=== PATIENT | female | born 1930 | race Caucasian/White ===

== ENCOUNTER 2018-12-19 08:30 | Inpatient (IN) ==
[2018-12-19] MEDS ORDERED: SODIUM CHLORIDE 0.9% 500 ML IV SCH (09:00)
[2018-12-19 09:20] LABS: Basophils # (auto) 0.03 K/uL (0-0.2); Basophils % (auto) 0.4 %; Eosinophils # (auto) 0.17 K/uL (0-0.5); Hematocrit (blood only) 37.9 % (37-47); Hemoglobin 12.9 g/dL (12.0-16.0); Immature Granulocytes # (auto) 0.02 K/uL (0.00-0.02); Immature Granulocytes % (auto) 0.2 %; Lymphocytes # (auto) 0.75 K/uL (1.2-3.4); Lymphocytes % (auto) 8.8 %; Mean Corpuscular Volume 91.8 fL (80-100); Mean Platelet Volume 9.9 fL (7.4-10.4); Monocytes # (auto) 0.61 K/uL (0.11-0.59); Monocytes % (auto) 7.2 %; Neutrophils # (auto) 6.93 K/uL (1.4-6.5); Neutrophils % (auto) 81.4 %; Platelet Count 246 K/uL (130-400); RDW Coefficient of Variation 14.6 % (11.5-14.5); RDW Standard Deviation 49.4 fL (36.4-46.3); Red Blood Count 4.13 M/uL (4.2-5.4); White Blood Count 8.51 K/uL (4.8-10.8)
[2018-12-19 09:25] LABS: Appearance Urine Clear (Clear); Bilirubin Urine Negative (Negative); Blood Urine Negative (Negative); Color Urine Yellow; Glucose Urine UA Negative (Negative); Ketones Urine Negative (Negative); Leukocyte Esterase Urine Negative (Negative); Nitrite Urine Negative (Negative); Protein Urine Negative (Negative); Specific Gravity Urine 1.012 (1.000-1.030); Urobilinogen Urine Negative (Negative); pH Urine 8.5 (4.5-7.5)
[2018-12-19 09:29] LABS: Prothrombin Time 10.4 Seconds (9.0-12.0)
--- NOTE | 2018-12-19 09:34 | XRay Report ---
XR chest 1V portable CLINICAL HISTORY: Atypical chest pain COMPARISON STUDY: No previous studies for comparison. FINDINGS: The heart is enlarged. There are postsurgical changes of a midline sternotomy. There is a l eft subclavian dual-chamber central venous pacemaker. There is slight elevation of interstitium sugge sting mild pulmonary vascular congestion. Increasing marking at the left lung base are likely atelect atic although an infectious/inflammatory processes could appear similar[ IMPRESSION: 1. Cardiomegaly and mild pulmonary vascular congestion 2. Increased left basilar markings statistically atelectatic Electronically signed by: Celestine Cohen M.D. 12/19/2018 9:32 AM
[2018-12-19 09:37] LABS: Alanine Aminotransferase 24 U/L (12-78); Albumin Level 3.5 gm/dl (3.4-5.0); Aspartate Aminotransferase 16 U/L (15-37); BUN Creatinine Ratio 17.4 (10-20); Blood Urea Nitrogen 20 mg/dl (7-18); Calcium 8.7 mg/dl (8.5-10.1); Carbon Dioxide 30 mmol/L (21-32); Chloride 106 mmol/L (98-107); Creatinine Clr Calc Pharmacy 32.9 ml/min; Est GFR (African American) 48.2; Est GFR (Non-African American) 41.6; Glucose 109 mg/dl (70-99); Magnesium 2.2 mg/dl (1.8-2.4); Potassium 3.9 mmol/L (3.5-5.1); Sodium 140 mmol/L (136-145)
[2018-12-19] MEDS ORDERED: DiphenhydrAMINE HCL 50 MG/ML VIAL IV STA (09:38)
[2018-12-19 09:47] LABS: Albumin Globulin Ratio 1.1 (0.9-2); Alkaline Phosphatase 90 U/L (45-117); Bilirubin,Total 0.7 mg/dl (0.2-1); Globulin 3.2 gm/dl (2.5-4.0); Phosphorus 3.1 mg/dl (2.5-4.9); Total Protein 6.7 gm/dl (6.4-8.2); Troponin I < 0.015 ng/ml (0-0.045)
[2018-12-19 09:59] LABS: T4 Free Thyroxine 2.46 ng/dl (0.8-1.6)
[2018-12-19] MEDS ORDERED: OPTIRAY 320 125ml IV PRN (10:07)
--- NOTE | 2018-12-19 10:33 | CT Scan Report ---
CT angio head w con CLINICAL HISTORY: vertigo POSSIBLE STROKE TECHNIQUE: CT angiography of the head was performed in a dynamic helical fashion during intravenous a dministration of 119 cc of Optiray 320. MIP imaging was performed. A dose lowering technique was util ized adhering to the principles of ALARA. CT DOSE: 1024.99 mGy.cm COMPARISON STUDY: No previous studies for comparison. FINDINGS: There are no lesion suspicious for aneurysm. There are no major intracranial branch occlusi ons. The dural venous sinuses appear patent. There is a 1 cm hyperdense right anterior dural based lesion at the level of the foramen magnum with minor mass effect on the craniocervical junction. This is nonspecific but could represent a meningiom a. An MRI would be considered the test of choice in follow-up. IMPRESSION: 1. No evidence of aneurysm. No evidence of major intracranial branch occlusion 2. 1 cm hyperdense right anterior dural based lesion at the level of the foramen magnum with minor ma ss effect on the cervical cranial junction. Although nonspecific this could represent a meningioma. A n MRI would be considered the test of choice in follow-up Electronically signed by: Celestine Cohen M.D. 12/19/2018 10:32 AM
--- NOTE | 2018-12-19 10:33 | CT Scan Report ---
CT head/brain wo con CLINICAL HISTORY: vertigo POSSIBLE STROKE COMPARISON STUDY: No previous studies for comparison. TECHNIQUE: Axial CT of the brain is performed from the vertex to the skull base. IV contrast was not administered for this examination. A dose lowering technique was utilized adhering to the principles of ALARA. CT DOSE: FINDINGS: No intra or extra-axial mass lesions are visualized. There is no CT evidence of acute cortical infarc tion. There is no evidence of midline shift. There is no acute hemorrhage. No calvarial fractures ar e visualized. There are patchy white matter hypodensities likely on a small vessel basis. There is no evidence of pathologic ventricular dilatation. There is a left cerebellar calcification. There is a suspected dural based lesion involving the right anterior aspect at the level of the foramen magnum. An MRI would be considered the test of choice in follow-up There is no evidence of acute sinusitis. IMPRESSION: 1. No acute intracranial findings 2. 1 cm hyperdense dural based lesion within the right anterior aspect of the foramen magnum. This co uld represent a meningioma. An MRI would be considered the test of choice in follow-up Electronically signed by: Celestine Cohen M.D. 12/19/2018 10:32 AM
--- NOTE | 2018-12-19 10:38 | CT Scan Report ---
CT angio neck with con CLINICAL HISTORY: vertigo POSSIBLE STROKE COMPARISON STUDY: No previous studies for comparison. TECHNIQUE: CT angiography was performed from the aortic arch to the skull base. MIP imaging was perfo rmed. The patient was scanned in a dynamic helical fashion during intravenous administration of 119 c c of Optiray 320. A dose lowering technique was utilized adhering to the principles of ALARA. CT DOSE: Technique: CT angiogram of the carotid and vertebral arteries was obtained using intravenous contrast and 3-D reconstruction. NASCET criteria was utilized. Findings: The right carotid revealed no evidence of aneurysm and no evidence of dissection. There is no evidenc e of hemodynamic significant stenosis. The left carotid revealed no evidence of hemodynamic significant stenosis. There is no evidence of an eurysm. There is no evidence of dissection. Atheromatous calcifications are present at the level of both carotid bulbs right greater than left. There is no evidence of hemodynamically significant vertebral stenosis. There is no evidence of verte bral dissection. At the level of the foramen magnum and there is a 1 cm right anterior dural based lesion demonstratin g minimal mass effect on the craniocervical junction. IMPRESSION: 1. No evidence of hemodynamically significant carotid or vertebral artery stenosis. No evidence of di ssection. 2. 1 cm right anterior dural based lesion at the level of the foramen magnum demonstrating minimal ma ss effect on the craniocervical junction. Electronically signed by: Celestine Cohen M.D. 12/19/2018 10:36 AM
--- NOTE | 2018-12-19 13:17 | History & Physical Report ---
Date of Service December 19, 2018 Assessment & Plan (1) Vertigo: Likely related to meningioma noted on CT CBC, PRP, TSH, trop WNL UA and CXR neg for infection CTA neg for acute [facility] neurosurgery contacted by ED and pt not felt a candidate for OR, planning for sx management and outpt f/u Improved s/p IVF and benadryl Somewhat concerned about frequent, mcc use of benadryl in this pt Meclizine PRN Holding on further IVF given toresmide use (2) Fall: Related to above PT/OT pending (3) Anxiety: continue home meds (4) Hyperlipidemia: continue home meds (5) HTN (hypertension): continue home meds (6) GERD (gastroesophageal reflux disease): continue home meds (7) Heart disease: s/p CABG, pacer, stents continue home meds (8) Hypokalemia: continue home meds, 3.9 on admission (9) Living in assisted living: Uncertain if this will continue to be appropriate for pt PT/OT pending CM alert (10) DVT prophylaxis: SCDs to avoid GIB in a pt on aspirin 81mg and plavix History of Present Illness Primary Care Provider: Victor M Hall MD 88 y/o F s/p fall. Pt's family has left the ED and pt is not able to tell me if this happened last night or this morning, but she states that she was camping in a camper at the [facility] with her daughter and other family. She states she got up to use the bathroom inside the camper and had difficulty opening the door because her vision was not as it usually is. Pt's baseline vision is using glasses to read, but does not wear them other times. She states she felt her head was "droggy" which she is having difficulty further quantifying. She states she could not keep her balance in the bathroom and fell against the wall onto her elbow. She was able to lower herself to the toilet to urinate, but due to the feeling in her head, she called out for help and was brought to the ED. Her vision was not blurry or double or absent, but more "dark". Pt states that she has had no similar episodes prior and no other recent falls. Pt has an apartment in [place] in [place]. Someone helps her with her medications there and she is uncertain what she takes. She does not remember if she took her medications or ate this AM. Pt was given IVF and benadryl in the ED. She still has the same sx, but they are less. CT head revealed a 1cm meningioma with very slight mass effect. ED physician spoke with neurosurgery at [facility] who stated that given pt's age and medical c omorbidities that he would not recommend surgical intervention or transfer at this time. Goal is for sx control and outpt f/u. ED physician states he discussed this with family and they would like her to stay at [facility] for observation. Pt does not remember conversation regarding meningioma between ED physician and family Allergies Allergy/AdvReac Type Severity Reaction Status Date / Time No Known Allergies Allergy Unverified 12/19/18 09:05 Home Medications Home Medications Medication Instructions Recorded Confirmed Type acetaminophen [Tylenol] 650 mg PO HS 12/19/18 12/19/18 History alprazolam 0.5 mg PO BID 12/19/18 12/19/18 History amiodarone 200 mg PO QAM 12/19/18 12/19/18 History amlodipine 10 mg PO QAM 12/19/18 12/19/18 History aspirin 81 mg PO BID 12/19/18 12/19/18 History calcium carbonate-vitamin D3 1 tab PO QAM 12/19/18 12/19/18 History [Calcium 600 + D(3)] cholecalciferol (vitamin D3) 1,000 unit PO QAM 12/19/18 12/19/18 History [Vitamin D3] clopidogrel 75 mg PO QAM 12/19/18 12/19/18 History cyanocobalamin (vitamin B-12) 1,000 mcg PO QAM 12/19/18 12/19/18 History [Vitamin B-12] donepezil 5 mg PO HS 12/19/18 12/19/18 History levothyroxine [Synthroid] 125 mcg PO 5XWK 12/19/18 12/19/18 History levothyroxine [Synthroid] 250 mcg PO 2XWK 12/19/18 12/19/18 History metoprolol succinate 25 mg PO QAM 12/19/18 12/19/18 History nitroglycerin 0.4 mg TRANSDERMAL QAM 12/19/18 12/19/18 History omeprazole 20 mg PO QAM 12/19/18 12/19/18 History potassium chloride 20 meq PO BID 12/19/18 12/19/18 History ranolazine [Ranexa] 500 mg PO Q12 12/19/18 12/19/18 History simvastatin 40 mg PO HS 12/19/18 12/19/18 History spironolactone [Aldactone] 12.5 mg PO BID 12/19/18 12/19/18 History torsemide 40 mg PO BID 12/19/18 12/19/18 History vitamin E 400 unit PO QAM 12/19/18 12/19/18 History Past Med/Surg History Medical History Heart disease (Chronic) Anxiety (Chronic) Surgical History History of open heart surgery S/P coronary artery stent placement Family History Other Family history non-contributory Social History marital status: / Current Living Situation: Alone current occupational status: retired Feels Safe at Home: Yes Smoking Status: Former smoker Cigarettes Per Day: 3-4 puffs on a cigarette here and there when younger, none for decades ; Hx Alcohol Use: No Hx Substance Use: No Review of Systems Review of Systems: Pertinent positives and negatives reviewed in HPI--all others negative Physical Exam Constitutional: WD/WN, vitals as above Eyes: normal visual jim by confrontation and + anicteric sclerae Neck: normal visual inspection and trachea midline Respiratory: normal respiratory effort, lungs clear to auscultation Cardiovascular: Rate/Rhythm: regular rate and regular rhythm Gastrointestinal (Abdomen): Inspection/Auscultation: abdomen not distended Percussion/Palpation: abdomen soft; abdomen nontender Musculoskeletal: Head/Neck/Chest: normocephalic and head atraumatic negative for edema, peripheral pulses intact Skin: no rashes, warm and dry Neurologic: CN's II-XI intact bilaterally and awake; not confused Speech / Cognition: normal speech Answers most questions appropriately, but does repeat information such as the fall this morning and her current living situation without repeated questioning. Psychiatric: A+Ox3, euthymic affect Results & Data Vital Signs (Past 12 Hours) Vital Signs Temp Pulse Pulse Resp BP BP Pulse Ox 12/19/18 12:14 63 16 146/75 H 93 12/19/18 11:17 65 20 113/51 L 97 12/19/18 10:02 60 18 136/65 95 12/19/18 08:53 97 12/19/18 08:50 36.5 C 60 20 128/73 97 Diagnostic Findings CXR: neg for acute CT head: 1 cm meningioma with slight mass effect CTA: neg for acute Code Status & VTE Plan Code Status Full code, although pt states she is not sure "You will have to talk with my kids. They know all of this." VTE Prophylaxis Plan VTE Prophylaxis will be ordered: Yes PG Care Time/CCT Total # of Minutes Spent Total Time Spent with Patient: Total time spent is greater than 50% in coordination of care (as documented) at patient's floor/unit and/or counseling patient:
[2018-12-19] MEDS ORDERED: ONDANSETRON INJ 2 MG/ML 2 ML VIAL IV PRN (14:03)
[2018-12-19] MEDS ORDERED: MECLIZINE 12.5 MG TAB PO PRN (14:03)
[2018-12-19] MEDS ORDERED: MAGNESIUM HYDROXIDE SUSP 30 ML UDC PO PRN (14:03)
[2018-12-19] MEDS ORDERED: ACETAMINOPHEN 325 MG TAB PO PRN (14:03)
--- NOTE | 2018-12-19 15:22 | Emergency Department Note ---
Entered by Nallely White acting as a scribe for History of Present Illness General Chief complaint: Vertigo Stated complaint: dizzy/shakes Time Seen by Provider: 12/19/18 08:54 Source: patient and family (daughter) History of Present Illness Onset (ago): hour(s) (this morning) Location: head Pain Consistency: + other (episode) Quality: + other (vertigo) Exacerbated By: + movement (standing up) Associated symptoms: + other (inability to walk, blurry vision, "fogginess", confusion) The patient is a 88 year old female with a history of CAD and anxiety that is presenting to the Emergency Room with complaints of an episode of vertigo that started this morning when the patient woke up. The patient is from the [facility] and reports that she was camping at the [facility] and felt foggy and light-headed upon sitting up. She states that she had difficulty seeing farther than a few feet in front of her, which is different than baseline. The patients daughter reports that the patient seemed confused and different than usual. The patient states that she was unable to walk and notes that her feet gave out from underneath her. Her daughter states that the patient has a history of anxiety and notes that the patient had not yet taken her Xanax when her symptoms began. Her daughter notes that the patient was given Ativan on the way to the ED by EMS. Her daughter states that the patients anxiety worsens with similar episodes in the past. Her daughter reports that the patient has a history of CAD and has had 2 open heart surgeries in the past that first presented with similar symptoms. Her daughter states that she has a history of coronary stents and a pacemaker. Her daughter notes that the patients left leg is swollen at baseline secondary to her past cardiac surgery. Her daughter denies any known history of a heart attack. The patient notes that she was well prior to todays episode. She states that she takes Plavix and Torsemide regularly. Home Medications Home Medications Medication Instructions Recorded Confirmed Type acetaminophen [Tylenol] 650 mg PO HS 12/19/18 12/19/18 History alprazolam 0.5 mg PO BID 12/19/18 12/19/18 History amiodarone 200 mg PO QAM 12/19/18 12/19/18 History amlodipine 10 mg PO QAM 12/19/18 12/19/18 History aspirin 81 mg PO BID 12/19/18 12/19/18 History calcium carbonate-vitamin D3 1 tab PO QAM 12/19/18 12/19/18 History [Calcium 600 + D(3)] cholecalciferol (vitamin D3) 1,000 unit PO QAM 12/19/18 12/19/18 History [Vitamin D3] clopidogrel 75 mg PO QAM 12/19/18 12/19/18 History cyanocobalamin (vitamin B-12) 1,000 mcg PO QAM 12/19/18 12/19/18 History [Vitamin B-12] donepezil 5 mg PO HS 12/19/18 12/19/18 History levothyroxine [Synthroid] 125 mcg PO 5XWK 12/19/18 12/19/18 History levothyroxine [Synthroid] 250 mcg PO 2XWK 12/19/18 12/19/18 History metoprolol succinate 25 mg PO QAM 12/19/18 12/19/18 History nitroglycerin 0.4 mg TRANSDERMAL QAM 12/19/18 12/19/18 History omeprazole 20 mg PO QAM 12/19/18 12/19/18 History potassium chloride 20 meq PO BID 12/19/18 12/19/18 History ranolazine [Ranexa] 500 mg PO Q12 12/19/18 12/19/18 History simvastatin 40 mg PO HS 12/19/18 12/19/18 History spironolactone [Aldactone] 12.5 mg PO BID 12/19/18 12/19/18 History torsemide 40 mg PO BID 12/19/18 12/19/18 History vitamin E 400 unit PO QAM 12/19/18 12/19/18 History Allergies Allergy/AdvReac Type Severity Reaction Status Date / Time No Known Allergies Allergy Unverified 12/19/18 09:05 Past Med/Surg History Medical History Heart disease (Chronic) Anxiety (Chronic) Surgical History History of open heart surgery S/P coronary artery stent placement Family History Other Family history non-contributory Social History Preferred Language: Irish Communication Ability: Effective Build Master Required: No Beliefs That Will Affect Care: None marital status: / Current Living Situation: Other Current Living Situation Comment: Assisted Living Facility current occupational status: retired Feels Safe at Home: Yes Smoking Status: Former smoker Tobacco Type: cigarettes ; Cigarettes Per Day: 3- 4 puffs on a cigarette here and there when younger, none for decades ; Second Hand Exposure: No ; Hx Alcohol Use: No Hx Substance Use: No Review of Systems See HPI for pertinent positives & negatives. and A total of 10 systems reviewed and were otherwise negative Physical Exam Vital Signs Vital Signs - 24 hr 12/19/18 08:50 12/19/18 08:53 12/19/18 08:58 Temperature 36.5 C Temperature Source Oral Sepsis Recent Fever Within 48 Hours No Sepsis New/Unexplained Change in Mental Status No Sepsis Action Taken by Nursing No Action Required Pulse Rate - Lying 60 Pulse Rate - Sitting 65 Pulse Rate - Standing 68 Pulse Rate 60 Pulse Rate [Left Finger] Respiratory Rate 20 Blood Pressure - Lying 127/61 Blood Pressure - Sitting 138/65 Blood Pressure- Standing 108/58 L Blood Pressure 128/73 Blood Pressure [Left Arm] Blood Pressure Mean 91 Blood Pressure Mean [Left Arm] Pulse Oximetry 97 97 Oxygen Delivery Method Room Air Room Air 12/19/18 10:02 12/19/18 11:17 12/19/18 12:14 Temperature Temperature Source Sepsis Recent Fever Within 48 Hours Sepsis New/Unexplained Change in Mental Status Sepsis Action Taken by Nursing Pulse Rate - Lying Pulse Rate - Sitting Pulse Rate - Standing Pulse Rate Pulse Rate [Left Finger] 60 65 63 Respiratory Rate 18 20 16 Blood Pressure - Lying Blood Pressure - Sitting Blood Pressure- Standing Blood Pressure Blood Pressure [Left Arm] 136/65 113/51 L 146/75 H Blood Pressure Mean Blood Pressure Mean [Left Arm] 88 71 98 Pulse Oximetry 95 97 93 Oxygen Delivery Method Room Air Room Air Room Air GENERAL: Awake, alert, fatigued-appearing, in no distress HENT: Normocephalic, atraumatic. Oropharynx with dry mucous membranes and otherw ise unremarkable. EYES: Normal conjunctiva. Sclera non-icteric. EOMI. No nystamgus. PEARRL. NECK: Supple. No nuchal rigidity. FROM. No JVD. RESPIRATORY: clear to auscultation bilaterally. CARDIAC: Regular rate, normal rhythm. 3/6 systolic murmur. Extremities warm and well perfused. Pulses equal. ABDOMEN: Soft, non-distended. No tenderness to palpation. No rebound or guarding. No masses. RECTAL: Deferred. MUSCULOSKELETAL: Chest examination reveals no tenderness. The back is symmetrical on inspection without obvious abnormality. There is no CVA tenderness to palpation. No joint edema. LOWER EXTREMITIES: Calves are equal size bilaterally and non-tender. No edema. No discoloration. NEURO: Normal sensorium. No sensory or motor deficits noted. Slight bilateral upper extremity intention tremor. Intact finger to nose. 5/5 strength and SILT x 4 extremities. SKIN: No rash or jaundice noted. Course 0931:The patient was evaluated in room B12B. A complete history and physical examination was performed. 1110: I updated the patient on her current lab and imaging results. The patient and her family would prefer not to be transferred to another facility if possi ble, but they stated that they would prefer [facility] in [place] if necessary. 1140: I discussed the patient's case with Dr. West, Neurosurgery, who stated that the patient's symptoms could be caused by the mass seen on her CT. However, given the patient's age and comorbidities, the patient is too high risk for surgical intervention. Dr. West recommended focusing on optimizing the patient's symptoms at this time and states that the patient could follow up with [facility] neurosurgery clinic for further management of her symptoms. He noted that if the patient is not accepted for evaluation at [facility] then the patient should be transferred to the [facility] Hospitalist service. 1147: I discussed the patient's case with Dr. Feng, [facility], who will evaluate the patient for further management and care. 1156: Upon reevaluation, the patient is resting comfortably. I discussed labo ratory and radiographic results with the patient. She verbalized agreement of the treatment plan. The patient will be evaluated for further management and care. Consultations Consultation #1: I discussed the patient's case with Dr. West, [facility] Neurosurgery, who stated that the patient's symptoms could be cause by the mass seen on her CT. However, given the patient's age and comorbidities, the patient is too high risk for surgical intervention. Dr. West recommended focusing on optimizing the patient's symptoms at this time and states that the patient could follow up with [facility] neurosurgery clinic for further management of her symptoms. He noted that if the patient is not accepted for evaluation at [facility] then the patient should be transferred to the [facility] Hospitalist service. Time: 11:40 Consultation #2: I discussed the patient's case with Dr. Feng [facility], who will evaluate the patient for further management and care. Time: 11:47 Administered Medications Ioversol (Optiray 320 125ml) 119 ml IV ONCE PRN PRN Reason: Interaction Checking Stop: 12/23/18 10:06 Last Admin: 12/19/18 10:07 Dose: 119 ml Documented by: [id number] Discontinued Medications Diphenhydramine HCl (Benadryl) 12.5 mg IV NOW STA Stop: 12/19/18 09:39 Last Admin: 12/19/18 09:57 Dose: 12.5 mg Documented by: [id number] Sodium Chloride (Nss) 500 mls @ 999 mls/hr IV .Q31M GUERO Stop: 12/19/18 09:30 Last Infusion: 12/19/18 09:57 Dose: 0 mls/hr Documented by: [id number] Admin: 12/19/18 09:00 Dose: 999 mls/hr Documented by: [id number] Medical Decision Making Differential Diagnosis Differential diagnosis: Etiologies such as vasovagal event, infection, hypoglycemia, electrolyte abnormalities, cardiac sources, intracerebral event, toxicologic, neurologic, as well as others were entertained. Medical Records Attestation: I reviewed the patient's medical records. Home Medications Current Medication List: was personally reviewed by me Laboratory Data Attestation: I reviewed the patient's lab results. Result diagrams: 12/19/18 09:07 12/19/18 09:07 Lab Results 12/19/18 12/19/18 12/19/18 Range/Units 09:07 09:07 09:07 WBC 8.51 (4.8-10.8) K/uL RBC 4.13 L (4.2-5.4) M/uL Hgb 12.9 (12.0-16.0) g/dL Hct 37.9 (37-47) % MCV 91.8 (80-100) fL MCH 31.2 (25-34) pg MCHC 34.0 (32-36) g/dL RDW Std Deviation 49.4 H (36.4-46.3) fL RDW Coeff of Judson 14.6 H (11.5-14.5) % Plt Count 246 (130-400) K/uL MPV 9.9 (7.4-10.4) fL Immature Gran % (Auto) 0.2 % Neut % (Auto) 81.4 % Lymph % (Auto) 8.8 % [place] % (Auto) 7.2 % Eos % (Auto) 2.0 % Baso % (Auto) 0.4 % Immature Gran # (Auto) 0.02 (0.00-0.02) K/uL Neut # (Auto) 6.93 H (1.4-6.5) K/uL Lymph # (Auto) 0.75 L (1.2-3.4) K/uL [place] # (Auto) 0.61 H (0.11-0.59) K/uL Eos # (Auto) 0.17 (0-0.5) K/uL Baso # (Auto) 0.03 (0-0.2) K/uL PT 10.4 (9.0-12.0) Seconds INR 1.0 (0.9-1.1) Sodium 140 (136-145) mmol/L Potassium 3.9 (3.5-5.1) mmol/L Chloride 106 (98-107) mmol/L Carbon Dioxide 30 (21-32) mmol/L Anion Gap 4.0 (3-11) BUN 20 H (7-18) mg/dl Creatinine 1.17 (0.6-1.2) mg/dl Est Cr Clr Drug Dosing 32.9 ml/min Est GFR ( Amer) 48.2 Est GFR (Non-Af Amer) 41.6 BUN/Creatinine Ratio 17.4 (10-20) Glucose 109 H (70-99) mg/dl Calcium 8.7 (8.5-10.1) mg/dl Phosphorus 3.1 (2.5-4.9) mg/dl Magnesium 2.2 (1.8-2.4) mg/dl Total Bilirubin 0.7 (0.2-1) mg/dl AST 16 (15-37) U/L ALT 24 (12-78) U/L Alkaline Phosphatase 90 (45-117) U/L Troponin I < 0.015 (0-0.045) ng/ml Total Protein 6.7 (6.4-8.2) gm/dl Albumin 3.5 (3.4-5.0) gm/dl Globulin 3.2 (2.5-4.0) gm/dl Albumin/Globulin Ratio 1.1 (0.9-2) Lipase 70 L (73-393) U/L TSH 0.022 L (0.300-4.500) uIu/ml Free T4 2.46 H (0.8-1.6) ng/dl Urine Color Urine Appearance (Clear) Urine pH (4.5-7.5) Ur Specific [place] (1.000-1.030) Urine Protein (Negative) Urine Glucose (UA) (Negative) Urine Ketones (Negative) Urine Blood (Negative) Urine Nitrite (Negative) Urine Bilirubin (Negative) Urine Urobilinogen (Negative) Ur Leukocyte Esterase (Negative) 12/19/18 Range/Units 09:08 WBC (4.8-10.8) K/uL RBC (4.2-5.4) M/uL Hgb (12.0-16.0) g/dL Hct (37-47) % MCV (80-100) fL MCH (25-34) pg MCHC (32-36) g/dL RDW Std Deviation (36.4-46.3) fL RDW Coeff of Judson (11.5-14.5) % Plt Count (130-400) K/uL MPV (7.4-10.4) fL Immature Gran % (Auto) % Neut % (Auto) % Lymph % (Auto) % [place] % (Auto) % Eos % (Auto) % Baso % (Auto) % Immature Gran # (Auto) (0.00-0.02) K/uL Neut # (Auto) (1.4-6.5) K/uL Lymph # (Auto) (1.2-3.4) K/uL [place] # (Auto) (0.11-0.59) K/uL Eos # (Auto) (0-0.5) K/uL Baso # (Auto) (0-0.2) K/uL PT (9.0-12.0) Seconds INR (0.9-1.1) Sodium (136-145) mmol/L Potassium (3.5-5.1) mmol/L Chloride (98-107) mmol/L Carbon Dioxide (21-32) mmol/L Anion Gap (3-11) BUN (7-18) mg/dl Creatinine (0.6-1.2) mg/dl Est Cr Clr Drug Dosing ml/min Est GFR ( Amer) Est GFR (Non-Af Amer) BUN/Creatinine Ratio (10-20) Glucose (70-99) mg/dl Calcium (8.5-10.1) mg/dl Phosphorus (2.5-4.9) mg/dl Magnesium (1.8-2.4) mg/dl Total Bilirubin (0.2-1) mg/dl AST (15-37) U/L ALT (12-78) U/L Alkaline Phosphatase (45-117) U/L Troponin I (0-0.045) ng/ml Total Protein (6.4-8.2) gm/dl Albumin (3.4-5.0) gm/dl Globulin (2.5-4.0) gm/dl Albumin/Globulin Ratio (0.9-2) Lipase (73-393) U/L TSH (0.300-4.500) uIu/ml Free T4 (0.8-1.6) ng/dl Urine Color Yellow Urine Appearance Clear (Clear) Urine pH 8.5 H (4.5-7.5) Ur Specific [place] 1.012 (1.000-1.030) Urine Protein Negative (Negative) Urine Glucose (UA) Negative (Negative) Urine Ketones Negative (Negative) Urine Blood Negative (Negative) Urine Nitrite Negative (Negative) Urine Bilirubin Negative (Negative) Urine Urobilinogen Negative (Negative) Ur Leukocyte Esterase Negative (Negative) Imaging Data Radiologist's Impression: Radiology results as stated below per my review and the radiologist's interpretation: XR chest 1V portable CLINICAL HISTORY: Atypical chest pain COMPARISON STUDY: No previous studies for comparison. FINDINGS: The heart is enlarged. There are postsurgical changes of a midline sternotomy. There is a left subclavian dual-chamber central venous pacemaker. There is slight elevation of interstitium suggesting mild pulmonary vascular congestion. Increasing marking at the left lung base are likely atelectatic although an infectious/inflammatory processes could appear similar[ IMPRESSION: 1. Cardiomegaly and mild pulmonary vascular congestion 2. Increased left basilar markings statistically atelectatic Electronically signed by: Celesitne Cohen M.D. 12/19/2018 9:[address] angio head w con CLINICAL HISTORY: vertigo POSSIBLE STROKE TECHNIQUE: CT angiography of the head was performed in a dynamic helical fashion during intravenous administration of 119 cc of Optiray 320. MIP imaging was p erformed. A dose lowering technique was utilized adhering to the principles of ALARA. CT DOSE: 1024.99 mGy.cm COMPARISON STUDY: No previous studies for comparison. FINDINGS: There are no lesion suspicious for aneurysm. There are no major intracranial branch occlusions. The dural venous sinuses appear patent. There is a 1 cm hyperdense right anterior dural based lesion at the level of the foramen magnum with minor mass effect on the craniocervical junction. This is nonspecific but could represent a meningioma. An MRI would be considered the test of choice in follow-up. IMPRESSION: 1. No evidence of aneurysm. No evidence of major intracranial branch occlusion 2. 1 cm hyperdense right anterior dural based lesion at the level of the foramen magnum with minor mass effect on the cervical cranial junction. Although nonspecific this could represent a meningioma. An MRI would be considered the test of choice in follow-up Electronically signed by: Celestine Cohen M.D. 12/19/2018 10:[address] angio neck with con CLINICAL HISTORY: vertigo POSSIBLE STROKE COMPARISON STUDY: No previous studies for comparison. TECHNIQUE: CT angiography was performed from the aortic arch to the skull base. MIP imaging was performed. The patient was scanned in a dynamic helical fashion during intravenous administration of 119 cc of Optiray 320. A dose lowering technique was utilized adhering to the principles of ALARA. CT DOSE: Technique: CT angiogram of the carotid and vertebral arteries was obtained using intravenous contrast and 3-D reconstruction. NASCET criteria was utilized. Findings: The right carotid revealed no evidence of aneurysm and no evidence of dissection. There is no evidence of hemodynamic significant stenosis. The left carotid revealed no evidence of hemodynamic significant stenosis. There is no evidence of aneurysm. There is no evidence of dissection. Atheromatous calcifications are present at the level of both carotid bulbs right greater than left. There is no evidence of hemodynamically significant vertebral stenosis. There is no evidence of vertebral dissection. At the level of the foramen magnum and there is a 1 cm right anterior dural based lesion demonstrating minimal mass effect on the craniocervical junction. IMPRESSION: 1. No evidence of hemodynamically significant carotid or vertebral artery steno sis. No evidence of dissection. 2. 1 cm right anterior dural based lesion at the level of the foramen magnum demonstrating minimal mass effect on the craniocervical junction. Electronically signed by: Celestine Cohen M.D. 12/19/2018 10:[address] head/brain wo con CLINICAL HISTORY: vertigo POSSIBLE STROKE COMPARISON STUDY: No previous studies for comparison. TECHNIQUE: Axial CT of the brain is performed from the vertex to the skull base. IV contrast was not administered for this examination. A dose lowering technique was utilized adhering to the principles of ALARA. CT DOSE: FINDINGS: No intra or extra-axial mass lesions are visualized. There is no CT evidence of acute cortical infarction. There is no evidence of midline shift. There is no acute hemorrhage. No calvarial fractures are visualized. There are patchy white matter hypodensities likely on a small vessel basis. There is no evidence of pathologic ventricular dilatation. There is a left cerebellar calcification. There is a suspected dural based lesion involving the right anterior aspect at the level of the foramen magnum. An MRI would be considered the test of choice in follow-up There is no evidence of acute sinusitis. IMPRESSION: 1. No acute intracranial findings 2. 1 cm hyperdense dural based lesion within the right anterior aspect of the foramen magnum. This could represent a meningioma. An MRI would be considered the test of choice in follow-up Electronically signed by: Celestine Cohen M.D. 12/19/2018 10:32 AM ECG Data Attestation: I personally reviewed and interpreted this ECG as follows: Indication: syncope Rate (beats per minute): 60 Rhythm: sinus rhythm Findings: + other (normal axis), + 1st degree AV block and + RBBB (incomplete); no ST depression, no ST elevation and no acute ischemic change Blood Pressure Blood Pressure Findings: Normal blood pressure MDM Narrative The patient is a pleasant 88-year-old woman with a past medical history of CAD status post CABG, PPM, dementia, hypertension, hypothyroidism, hyperlipidemia, anxiety on Xanax who presents emergency department with episode of near syncope with generalized weakness and vertiginous symptoms prior to arrival per hpi. On arrival the patient is fatigued appearing but no acute distress, afebrile stable vital signs. Patient appears clinically dry. She is grossly neurologically intact including intact [id number]. EOMI. No nystamgus. PEARRL. EKG without overt acute ischemia. Chest x-ray with mild vascular congestion however the patient denies any respiratory symptoms and has normal oxygen saturation on room air. CT of the head neck performed and demonstrates 1 cm hyperdense dural based lesion within the right anterior aspect of the foramen magnum with mild mass effect that could be consistent with a meningioma. WBC, H/H, platelets wnl. Chemistry without acidosis. LFTs and electrolytes unremarkable. UA negative. Patient reports feeling improved after IV fluid hydration and Benadryl. CT findings reviewed with the patient and family and they expressed preference to not be transferred if possible. I did discuss the case with [facility] neurosurgery, Dr. West, who who explains that it is possible that the CT findings could be related to her symptoms however recomme nds that given the patient's age and comorbidities she is not a surgical candidate and that focus will be on conservative support for her symptoms. Should the family want more information regarding the evaluation of this they would be welcome to see the patient in the clinic however the recommendation would likely be the same. If the patient were to be transferred they would be admitted to the medicine service. Thus, case was discussed with Dr. Feng, [facility] hospitalist, who accepted patient here for admission given that the patient is not a surgical candidate for her CT findings. This was reviewed with the patient and family and they are agreeable for admission here and they further explain that they would not want any invasive interventions performed. Impression & Plan Vertigo, Meningioma, Near syncope Discharge Plan Visit Data *Final* Discharge Date/Time: 12/19/18 13:38 Chief Complaint: Vertigo Stated Complaint: dizzy/shakes ED Provider: Alexys Dickerson Discharge Problem: Vertigo, Meningioma, Near syncope Patient Disposition: Admitted As Inpatient Discharge Instructions Interventions: ED Discharge Assessment Last Done: 12/19/18 13:38 The scribe's documentation has been prepared under my direction and personally reviewed by me in its entirety. I confirm that the note above accurately reflects all work, treatment, procedures, and medical decision making performed by me.
[2018-12-19] MEDS ORDERED: SPIRONOLACTONE 25 MG TAB PO SCH (17:00)
[2018-12-19] MEDS: ACETAMINOPHEN 325 MG TAB PO SCH (20:42)
[2018-12-19] MEDS: ASPIRIN 81 MG ECTAB PO SCH (20:42)
[2018-12-19] MEDS: TORSEMIDE 10 MG TAB PO SCH (20:43)
[2018-12-19] MEDS: DONEPEZIL HCL 5 MG TAB PO SCH (20:43)
[2018-12-19] MEDS: POTASSIUM CHLORIDE 20 MEQ TABCR PO SCH (20:44)
[2018-12-19] MEDS: SIMVASTATIN 40 MG TAB PO SCH (20:44)
[2018-12-19] MEDS: RANOLAZINE 500 MG ER TAB PO SCH (20:44)
[2018-12-19] MEDS: ALPRAZolam 0.5 MG TABLET PO SCH (20:46)
[2018-12-20] MEDS: LEVOTHYROXINE SODIUM 125 MCG TABLET PO SCH (06:28)
[2018-12-20] MEDS: NITROGLYCERIN 0.4 MG/HR PATCH TD SCH (08:57)
[2018-12-20] MEDS: PANTOprazole 40 MG TAB PO SCH (08:57)
[2018-12-20] MEDS: CYANOCOBALAMIN 500 MCG TABLET (VITAMIN B-12) PO SCH (08:57)
[2018-12-20] MEDS: METOPROLOL SUCC 25MG EXT REL TAB PO SCH (08:57)
[2018-12-20] MEDS: CALCIUM 600MG + VIT D 400 IU TAB PO SCH (08:57)
[2018-12-20] MEDS: POTASSIUM CHLORIDE 20 MEQ TABCR PO SCH ×2 (08:58→21:26)
[2018-12-20] MEDS: RANOLAZINE 500 MG ER TAB PO SCH ×2 (08:58→21:25)
[2018-12-20] MEDS: AMLODIPINE BESYLATE 5 MG TAB PO SCH (08:58)
[2018-12-20] MEDS: TORSEMIDE 10 MG TAB PO SCH ×2 (08:58→21:24)
[2018-12-20] MEDS: CHOLECALCIFEROL 1,000 UNITS TAB PO SCH (08:58)
[2018-12-20] MEDS: CLOPIDOGREL BISULFATE 75 MG TAB PO SCH (08:58)
[2018-12-20] MEDS: TOCOPHERYL, DL-ALPHA 400 UNITS CAP PO SCH (08:58)
[2018-12-20] MEDS: ASPIRIN 81 MG ECTAB PO SCH ×2 (08:58→21:25)
[2018-12-20] MEDS: AMIODARONE 200 MG TAB PO SCH (08:58)
[2018-12-20] MEDS: ALPRAZolam 0.5 MG TABLET PO SCH ×2 (09:06→21:28)
[2018-12-20] MEDS: ACETAMINOPHEN 325 MG TAB PO SCH (21:24)
[2018-12-20] MEDS: DONEPEZIL HCL 5 MG TAB PO SCH (21:26)
[2018-12-20] MEDS: SIMVASTATIN 40 MG TAB PO SCH (21:27)
--- NOTE | 2018-12-20 22:47 | Hospitalist Progress Note ---
Date of Service December 20, 2018 Assessment & Plan (1) Vertigo: Likely related to meningioma noted on CT CBC, PRP, TSH, trop WNL UA and CXR neg for infection CTA neg for acute [facility] [place] contacted by ED and pt not felt a candidate for OR, planning for sx management and outpt f/u Improved s/p IVF and benadryl Somewhat concerned about frequent, supervisor intermediates use of benadryl in this pt Meclizine PRN Holding on further IVF given toresmide use; Physical therapy evaluated patient and cleared her back to assisted living. However, family is [place] until next Friday. Will need to discuss with PT if they recommend that she can tolerate ambulating in a camper or if patient should be transferred back to her living facility from her. (2) Fall: Related to above PT/OT as noted above. (3) Anxiety: continue home meds (4) Hyperlipidemia: continue home meds (5) HTN (hypertension): continue home meds (6) GERD (gastroesophageal reflux disease): continue home meds (7) Heart disease: s/p CABG, pacer, stents continue home meds (8) Hypokalemia: continue home meds, 3.9 on admission (9) Living in assisted living: Uncertain if this will continue to be appropriate for pt PT/OT pending CM alert (10) DVT prophylaxis: SCDs to avoid GIB in a pt on aspirin 81mg and plavix Spent 35 minutes in management of patient. This included discussion with case management and patient's daughter Subjective Patient is a poor historian. She has no new complaints. Review of Systems Review of Systems: Pertinent positives and negatives reviewed in HPI--all others negative Physical Exam Physical Exam: Constitutional: WD/WN, vitals as above Eyes: normal visual jim by confrontation and + anicteric sclerae Neck: normal visual inspection and trachea midline Respiratory: normal respiratory effort, lungs clear to auscultation Cardiovascular: Rate/Rhythm: regular rate and regular rhythm Gastrointestinal (Abdomen): Inspection/Auscultation: abdomen not distended Percussion/Palpation: abdomen soft; abdomen nontender Musculoskeletal: Head/Neck/Chest: normocephalic and head atraumatic negative for edema, peripheral pulses intact Skin: no rashes, warm and dry Neurologic: CN's II-XI intact bilaterally and awake; Speech / Cognition: normal speech Answers most questions appropriately, but does repeat information such as the fall this morning and her current living situation without repeated questioning. Psychiatric: A+Ox2 (not oriented to time or recalls why she is in the hospital), euthymic affect Results & Data Vital Signs (Past 12 Hours) Vital Signs Temp Pulse Resp BP Pulse Ox 12/20/18 20:03 36.5 C 62 18 122/56 L 98 12/20/18 15:26 36.6 C 61 20 110/63 94 12/20/18 12:00 96 12/20/18 11:33 36.4 C L 63 18 103/58 L 96 PG Care Time/CCT Total # of Minutes Spent Total Time Spent with Patient: Total time spent is greater than 50% in coordination of care (as documented) at patient's floor/unit and/or counseling patient:
[2018-12-21] MEDS: LEVOTHYROXINE SODIUM 125 MCG TABLET PO SCH (06:19)
[2018-12-21] MEDS: PANTOprazole 40 MG TAB PO SCH (08:34)
[2018-12-21] MEDS: METOPROLOL SUCC 25MG EXT REL TAB PO SCH (08:34)
[2018-12-21] MEDS: AMLODIPINE BESYLATE 5 MG TAB PO SCH (08:34)
[2018-12-21] MEDS: TORSEMIDE 10 MG TAB PO SCH (08:35)
[2018-12-21] MEDS: CLOPIDOGREL BISULFATE 75 MG TAB PO SCH (08:35)
[2018-12-21] MEDS: AMIODARONE 200 MG TAB PO SCH (08:35)
[2018-12-21] MEDS: NITROGLYCERIN 0.4 MG/HR PATCH TD SCH (08:35)
[2018-12-21] MEDS: RANOLAZINE 500 MG ER TAB PO SCH (08:35)
[2018-12-21] MEDS: CYANOCOBALAMIN 500 MCG TABLET (VITAMIN B-12) PO SCH (08:35)
[2018-12-21] MEDS: POTASSIUM CHLORIDE 20 MEQ TABCR PO SCH (08:35)
[2018-12-21] MEDS: ASPIRIN 81 MG ECTAB PO SCH (08:35)
[2018-12-21] MEDS: CHOLECALCIFEROL 1,000 UNITS TAB PO SCH (08:35)
[2018-12-21] MEDS: CALCIUM 600MG + VIT D 400 IU TAB PO SCH (08:35)
[2018-12-21] MEDS: TOCOPHERYL, DL-ALPHA 400 UNITS CAP PO SCH (08:35)
[2018-12-21] MEDS: ALPRAZolam 0.5 MG TABLET PO SCH (08:41)
--- NOTE | 2018-12-21 11:09 | Discharge Summary ---
Date of Service December 21, 2018 Admission HPI Per Admitting Provider 88 y/o F s/p fall. Pt's family has left the ED and pt is not able to tell me if this happened last night or this morning, but she states that she was camping in a camper at the [facility] with her daughter and other family. She states she got up to use the bathroom inside the camper and had difficulty opening the door because her vision was not as it usually is. Pt's baseline vision is using glasses to read, but does not wear them other times. She states she felt her head was "droggy" which she is having difficulty further quantifying. She states she could not keep her balance in the bathroom and fell against the wall onto her elbow. She was able to lower herself to the toilet to urinate, but due to the feeling in her head, she called out for help and was brought to the ED. Her vision was not blurry or double or absent, but more "dark". Pt states that she has had no similar episodes prior and no other recent falls. Pt has an apartment in [place] in [place]. Someone helps her with her medications there and she is uncertain what she takes. She does not remember if she took her medications or ate this AM. Pt was given IVF and benadryl in the ED. She still has the same sx, but they are less. CT head revealed a 1cm meningioma with very slight mass effect. ED physician spoke with neurosurgery at [facility] who stated that given pt's age and medical comorbidities that he would not recommend surgical intervention or transfer at this time. Goal is for sx control and outpt f/u. ED physician states he discussed this with family and they would like her to stay at [facility] for observation. Pt does not remember conversation regarding meningioma between ED physician and family Principal Diagnosis Pt is doing quite well. She has had no further vertigo and has not taken any meclizine or benadryl since the dosing in the ED. She feels much better at this time. She is tolerating PO without issue. Pt denies fever, SOB, chest pain, abd pain, n/v/c/d, LE pain or swelling. Discussed via phone with pt's daughter who is a nurse. She states that pt's [place] facility has in house PT and OT and they will be able to set this up for her when she returns. She is planning to take pt back to the [facility] for the remainder of the [facility]. They are staying in a camper and she will have family around at all times. Daughter states that pt's PCP is her nephew and that he is one of the PCPs at the [place] lives. She states that if pt has worsening sx she will be seen by neurology or neurosurgery in the [facility] where they live and that they can arrange this if necessary. Discharge Exam Constitutional WD/WN, vitals as above Eyes normal visual jim by confrontation and + anicteric sclerae Neck normal visual inspection and trachea midline Respiratory normal respiratory effort, lungs clear to auscultation Cardiovascular Rate/Rhythm: regular rate and regular rhythm Gastrointestinal (Abdomen) Inspection/Auscultation: abdomen not distended Percussion/Palpation: abdomen soft; abdomen nontender Musculoskeletal Head/Neck/Chest: normocephalic and head atraumatic Skin no rashes, warm and dry Neurologic CN's II-XI intact bilaterally and awake; not confused Speech / Cognition: normal speech Psychiatric Orientation: alert, oriented to person, oriented to place, oriented to time (does repeat at times) and cooperative Discharge Data Allergies Allergy/AdvReac Type Severity Reaction Status Date / Time No Known Allergies Allergy Unverified 12/19/18 09:05 Consultations 12/19/18 11:48 ED Decision to Admit Stat 12/19/18 14:03 Consult Case Management - Discharge Planning Routine Ordered Studies 12/19/18 09:37 CT angio head w con Stat CT angio neck with con Stat CT head/brain wo con Stat Hospital Course (1) Vertigo: Likely related to meningioma noted on CT CBC, PRP, TSH, trop WNL UA and CXR neg for infection CTA neg for acute [facility] [place] contacted by ED and pt not felt a candidate for OR, planning for sx management and outpt f/u Improved s/p IVF and benadryl Somewhat concerned about frequent, retirement use of benadryl in this pt Meclizine PRN Holding on further IVF given toresmide use; PT/OT evaluated patient and cleared her back to assisted living. d/w daughter as noted above, planning for pt to return to the [facility] and then her [place] CM did not set up any services for pt as family states that all of these can be arranged at [place] (2) Fall: Related to above PT/OT as noted above. (3) Anxiety: continue home meds (4) Hyperlipidemia: continue home meds (5) HTN (hypertension): continue home meds (6) GERD (gastroesophageal reflux disease): continue home meds (7) Heart disease: s/p CABG, pacer, stents continue home meds (8) Hypokalemia: continue home meds, 3.9 on admission (9) Living in assisted living: PT/OT as above, planning for return as this was deemed appropriate (10) DVT prophylaxis: SCDs to avoid GIB in a pt on aspirin 81mg and plavix Total Time Total Time Spent Total Time Spent (In Minutes): > 30 Discharge Plan Discharge Items Patient Disposition: Home - Home Health Services Reason For Visit: PRE SYNCOPE Discharge Diagnosis: Vertigo related to meningioma Discharge Goals: Diagnostic testing, Improve function and Increase independence Activity: Resume your previous activity Non-emergency contact: Primary Care Provider and Neurologist Call non-emergency contact if: you have any medication questions and your symptoms worsen Follow-up/Referrals: Victor M Hall MD [Primary Care Provider] - Diet: Regular and Heart Healthy Addtl Provider Instructions: You can take the meclizine if you have vertigo symptoms. You do not need to take it unless you are having vertigo. You should be set up with PT/OT at your assisted living facility You can follow up with neurosurgery or neurology near where you live if you would like, but you do not need to unless you have new or worsening symptoms that are not helped with the meclizine. You should see your PCP in the next 1-2 weeks. Prescriptions: New meclizine 12.5 mg Tablet 12.5 mg PO Q4H PRN (Reason: vertigo) 30 Days Qty: 30 RF: 1 Continued acetaminophen [Tylenol] 325 mg Tablet 650 mg PO HS RF: 0 donepezil 5 mg tablet 5 mg PO HS RF: 0 torsemide 20 mg tablet 40 mg PO BID RF: 0 amiodarone 200 mg tablet 200 mg PO QAM RF: 0 cyanocobalamin (vitamin B-12) [Vitamin B-12] 1,000 mcg Tablet 1,000 mcg PO QAM RF: 0 clopidogrel 75 mg tablet 75 mg PO QAM RF: 0 aspirin 81 mg Tablet,Delayed Release (Dr/Ec) 81 mg PO BID RF: 0 spironolactone [Aldactone] 25 mg Tablet 12.5 mg PO BID RF: 0 simvastatin 40 mg tablet 40 mg PO HS RF: 0 alprazolam 0.5 mg tablet 0.5 mg PO BID RF: 0 potassium chloride 20 mEq tablet,ER particles/crystals 20 meq PO BID RF: 0 nitroglycerin 0.4 mg/hr patch 24 hour 0.4 mg transdermal QAM RF: 0 amlodipine 10 mg tablet 10 mg PO QAM RF: 0 levothyroxine [Synthroid] 125 mcg tablet 250 mcg PO 2XWK RF: 0 levothyroxine [Synthroid] 125 mcg tablet 125 mcg PO 5XWK RF: 0 omeprazole 20 mg capsule,delayed release(DR/EC) 20 mg PO QAM RF: 0 metoprolol succinate 25 mg tablet extended release 24 hr 25 mg PO QAM RF: 0 vitamin E 400 unit Capsule 400 unit PO QAM RF: 0 ranolazine [Ranexa] 500 mg tablet extended release 12 hr 500 mg PO Q12 RF: 0 calcium carbonate-vitamin D3 [Calcium 600 + D(3)] 600 mg(1,500mg) -400 unit Tablet 1 tab PO QAM RF: 0 cholecalciferol (vitamin D3) [Vitamin D3] 1,000 unit Tablet,Chewable 1,000 unit PO QAM RF: 0 Stand-Alone Forms: [facility] Discharge Orders: Discharge Order (Routine); Ordered 12/21/18 Ordered By: Valeri Feng Admission Data Admit Date/Time: 12/19/18 13:01 Attending Provider: Issa Camp Admit Provider: Valeri Feng Primary Care Provider: Victor M Hall Other Providers: Valeri Feng Service: Telemetry Other Interventions: Discharge Summary Assessment (RN) Last Done: 12/21/18 14:22
[2018-12-23] MEDS ORDERED: LEVOTHYROXINE SODIUM 125 MCG TABLET PO SCH (06:30)
== END 2018-12-21 14:25 | disposition home health service (06) | DRG 55 ==
LOC: ED 08:30 → SUATTDRO 13:01 → 2S 13:01